=== PATIENT | male | born 1955 | race Caucasian/White ===

== ENCOUNTER → 2017-05-30 | Outpatient (CLI) | payer OTHER ==
[~2017-05-30] MED LIST: OMNIPAQUE 350 MG/ML, 100ML BOTTLE ONE; SIMV10TA3 PO
[2017-05-30 16:07] LABS: CREATININE 1.04 mg/dL (0.7-1.3)
== END | disposition home or self-care (01) ==
LOC: RAD 15:09
PROVIDERS: ATTEND Family Medicine
DX: R07.9 Chest pain, unspecified (principal)
CPT/HCPCS: 36415; 71275; 82565; Q9967